=== PATIENT | female | born 1955 | race Caucasian/White ===

== ENCOUNTER → 2024-01-23 | Outpatient (CLI) | payer MEDICARE ==
--- NOTE | 2024-01-23 17:13 | PE ---
EXAMINATION TYPE: PET CT fusion skull to thigh DATE OF EXAM: 01/23/2024 CLINICAL INDICATION:Female, 68 years old with history of R91.8 OTHER NONSPECIFIC ABNORMAL FINDING OF LUNG FIELD; TECHNIQUE: Following the intravenous administration of 9.54 mCi of F-18 FDG, whole body images are performed from the skull base to the midthigh. Images are reviewed on the computer in the coronal, a xial, and sagittal planes. Reconstructed rotating images are created on independent workstation and reviewed on the computer. A non-contrast CT is performed in conjunction with the PET scan. Glucose level 99 mg/dL CT DLP: 897.51 mGycm, Automated exposure control for dose reduction was used. COMPARISON: CT None, PET/CT 01/31/2023, MRI: None FINDINGS: Mediastinal SUV mean is 2.4. Hepatic parenchyma SUV mean is 3.6. SKULL BASE AND NECK: No suspicious radiotracer activity. Physiologic uptake within the vocal cords. CHEST, MEDIASTINUM, AND HILAR REGION: Similar tree-in-bud nodular opacities within the anterior lateral right middle lobe with a maximum KAM V of 2.0, previously 0.8. Similar nodular consolidation within the lingula measuring 1.1 cm with a ma ximum SUV of 3.5, previously 1.3. Few scattered small pulmonary nodules redemonstrated and below the sensitivity for PET/CT based on size. ABDOMEN AND PELVIS: No suspicious radiotracer activity. MUSCULOSKELETAL STRUCTURES: No suspicious radiotracer activity. OTHER CT: Bilateral carotid bulb calcifications. Mild atherosclerotic calcification of the arterial v asculature. Small aortic valvular calcifications. Periampullary duodenal diverticulum. Small fat fill ed umbilical hernia. Mild paraseptal emphysematous changes. IMPRESSION: 1. Mild increased radiotracer uptake within similar appearing nodular lingular opacity from prior PE T/CT. Radiotracer uptake is slightly above background. This is nonspecific with etiologies including infiltrate versus slow growing neoplasm. Follow-up CT chest in 6 months is recommended. 2. Additional similar-appearing tree-in-bud nodular opacities within the right middle lobe with radi otracer activity have background. Favored to represent infectious/inflammatory bronchiolitis changes. 3. No other suspicious radiotracer uptake.
== END | disposition home or self-care (01) ==
LOC: RADPETMAIN 09:54
PROVIDERS: ATTEND Internal Medicine
DX: R91.8 Other nonspecific abnormal finding of lung field
CPT/HCPCS: 78815